=== PATIENT | female | born 1995 | race Caucasian/White ===

== ENCOUNTER 2023-08-08 02:54 | Inpatient (IN) | payer OTHER ==
[2023-08-08] VITALS (21 sets, daily range): BP systolic 98–134; BP diastolic 53–83; O2SAT 100
[~2023-08-08] VITALS: Ht 180.3 cm; Wt 83.2 kg
[2023-08-08] MEDS ORDERED: LACTATED RINGER'S 1000 ML IV STA (03:32)
[2023-08-08] MEDS ORDERED: PENICILLIN G POTASSIUM 5 MU IV 5 MU in D5W MINI-BAG PLUS 100 ML IV STA (03:32)
[2023-08-08] MEDS ORDERED: PRENTAB9 PO (03:33)
[2023-08-08] MEDS ORDERED: OXYTOCIN DRIP 30 UNITS in IV 1 EA IV SCH (03:35)
[2023-08-08] MEDS ORDERED: TRANEXAMIC ACID INJection 1,000 MG in NS 100 ML IV PRN (03:35)
[2023-08-08] MEDS ORDERED: METHYLERGONOVINE MALEATE 0.2MG/ML 1ML VIAL IM PRN (03:35)
[2023-08-08] MEDS ORDERED: OXYTOCIN INJ 10UNITS/ML 1ML VIAL IV PRN (03:35)
[2023-08-08] MEDS ORDERED: CARBOPROST TROMETHAMINE 250 MCG/ML AMP IM PRN (03:35)
[2023-08-08] MEDS ORDERED: LIDOCAINE 1% MDV 20ML VIAL INFIL PRN (03:35)
[2023-08-08] MEDS ORDERED: LR 1,000 ML IV SCH ×2 (03:35)
[2023-08-08] MEDS ORDERED: OXYTOCIN DRIP 30 UNITS in IV 1 EA IV PRN ×6 (03:35)
[2023-08-08] MEDS ORDERED: OXYTOCIN INJ 10UNITS/ML 1ML VIAL IM PRN (03:35)
[2023-08-08] MEDS ORDERED: HOME MED LIST COMPLETE! XX SCH (03:40)
[2023-08-08 04:05] LABS: HEMATOCRIT 35.2 % (36.0-47.0); HEMOGLOBIN 11.3 g/dl (12.0-15.5); MEAN CORPUSCULAR HGB CONC 32.1 g/dl (32.0-36.5); PLATELET COUNT, AUTOMATED 188 10^3/uL (150-450); RED BLOOD COUNT 4.19 10^6/uL (4.00-5.40); WHITE BLOOD COUNT 18.5 10^3/uL (4.0-10.0)
[2023-08-08] MEDS ORDERED: diphenhydrAMINE 50MG/ML VIAL IV PRN (04:15)
[2023-08-08] MEDS ORDERED: LR 500 ML IV PRN (04:15)
[2023-08-08] MEDS ORDERED: ePHEDrine SULFATE 25 MG/5 ML(5MG/ML) SYRINGE IVP PRN (04:15)
[2023-08-08] MEDS ORDERED: ONDANSETRON 4MG 2ML VIAL IV PRN (04:15)
[2023-08-08] MEDS ORDERED: NALOXONE INJ 0.4MG/1ML VIAL IV PRN (04:15)
[2023-08-08] MEDS ORDERED: FENTANYL/ROPIVACAINE/NACL BAG 100 ML EPIDURAL SCH (04:15)
[2023-08-08] MEDS ORDERED: EPIDURAL/PCA KEYS XX PRN (04:15)
[2023-08-08] MEDS ORDERED: ANUSOL HC CREAM 30GM TOP PRN (05:30)
[2023-08-08] MEDS ORDERED: DOCUSATE SODIUM 100MG CAPSULE PO PRN (05:30)
[2023-08-08] MEDS ORDERED: MOM 30ML SUSPENSION UDC PO PRN (05:30)
[2023-08-08] MEDS ORDERED: ACETAMINOPHEN 500 MG TAB PO PRN (05:30)
[2023-08-08] MEDS ORDERED: DIBUCAINE 1% OINTMENT 30GM TOP PRN (05:30)
[2023-08-08] MEDS ORDERED: PEN G POT 3,000,000 UNIT/50 ML 3,000,000 UNIT in IV 1 EA IV SCH (08:00)
[2023-08-08] MEDS: PRENATAL VITAMINS CHEWABLE TABLET PO SCH (10:15)
[2023-08-08] MEDS: IBUPROFEN 800 MG TAB PO PRN ×2 (10:16→19:55)
[2023-08-09] MEDS ORDERED: FIORICET TAB PO PRN (05:30)
[2023-08-09 06:00] VITALS: BP 111/76; O2SAT 100
[2023-08-09] MEDS ORDERED: CAFFEINE CITRATE 20 MG/ML *CAFCIT INJ* 3ML VIAL IV PRN (06:00)
[2023-08-09] MEDS: PRENATAL VITAMINS CHEWABLE TABLET PO SCH (08:03)
[2023-08-10] MEDS ORDERED: MEASLES,MUMPS,RUBELLA VACCINE INJ (MMR-II) SC.IMMUN ONE (09:00)
== END 2023-08-09 13:55 | disposition home or self-care (01) | DRG 807 ==
LOC: M LDO 02:54 → M LDI 03:20 → M OBS 09:43
PROVIDERS: ADMIT Obstetrics & Gynecology; ATTEND Obstetrics & Gynecology
PROC: 10E0XZZ Delivery of Products of Conception, External Approach (ICD-10-PCS; principal; 2023-08-08)
PROC: 0KQM0ZZ Repair Perineum Muscle, Open Approach (ICD-10-PCS; 2023-08-08)
DX: O70.1 Second degree perineal laceration during delivery (principal); Z37.0 Single live birth; Z3A.40 40 weeks gestation of pregnancy; O99.824 Streptococcus B carrier state complicating childbirth

== ENCOUNTER 2023-08-11 10:23 | Emergency (ER) | payer OTHER ==
[~2023-08-11] VITALS: Ht 180.3 cm; Wt 76.9 kg
[~2023-08-11 10:23] MED LIST changes: -ACET1TAB55; -IBUP200C89 PO
[2023-08-11] MEDS ORDERED: IBUP200C89 PO (10:30)
[2023-08-11] MEDS ORDERED: ACET1TAB55 (10:30)
[2023-08-11 13:29] VITALS: BP 121/71; TEMP 98; O2SAT 98
[2023-08-11 13:51] LABS: BASO # 0.1 10^3/uL (0.0-0.2); BASO % 0.5 % (0.0-1.0); EOS # 0.1 10^3/uL (0.0-0.5); HEMATOCRIT 33.5 % (36.0-47.0); HEMOGLOBIN 10.4 g/dl (12.0-15.5); LYMPH % 15.6 % (24.0-44.0); MEAN CORPUSCULAR HEMOGLOBIN 26.6 pg (27.0-33.0); MEAN CORPUSCULAR VOLUME 85.7 fl (80.0-96.0); MONO # 0.6 10^3/uL (0.0-0.8); MONO % 4.6 % (2.0-8.0); NEUTROPHILS # 9.9 10^3/uL (1.5-8.5); NEUTROPHILS % 77.3 % (36.0-66.0); PLATELET COUNT, AUTOMATED 198 10^3/uL (150-450); RED BLOOD COUNT 3.91 10^6/uL (4.00-5.40); WHITE BLOOD COUNT 12.8 10^3/uL (4.0-10.0)
== END 2023-08-11 13:42 | disposition home or self-care (01) ==
LOC: M ED 10:23
DX: O89.4 Spinal and epidural anesthesia-induced headache during the puerperium (principal); Z79.1 Long term (current) use of non-steroidal anti-inflammatories (NSAID); Z79.810 Long term (current) use of selective estrogen receptor modulators (SERMs)

== ENCOUNTER → 2023-08-11 | Outpatient (CLI) | payer OTHER ==
[~2023-08-11] MED LIST: ACET1TAB55; IBUP200C89 PO; PRENTAB9 PO
[2023-08-11 14:45] VITALS: BP 129/84; O2SAT 99
== END ==
LOC: EDSTATUS 10:06 → M OROP 14:08 → UNDOADMOB 14:08 → M ED INP 14:08 → UNDODISOB 14:45
PROVIDERS: ATTEND Anesthesiology
DX: O89.4 Spinal and epidural anesthesia-induced headache during the puerperium (principal); Z53.20 Procedure and treatment not carried out because of patient's decision for unspecified reasons